=== PATIENT | male | born 1990 | race African-American/Black ===

== ENCOUNTER 2022-06-09 17:00 | Emergency (ER) | payer OTHER ==
[~2022-06-09] VITALS: Ht 182.9 cm; Wt 136.0 kg
[2022-06-09 17:28] VITALS: BP 137/100
[2022-06-09] MEDS ORDERED: bacitracin 15gm ointment TP ONE (19:45)
== END 2022-06-09 20:11 | disposition home or self-care (01) ==
LOC: ER 17:01
DX: S81.012A Laceration without foreign body, left knee, initial encounter (principal); W25.XXXA Contact with sharp glass, initial encounter; Y93.89 Activity, other specified; Y92.89 Other specified places as the place of occurrence of the external cause; Y99.8 Other external cause status
CPT/HCPCS: 99282; A6258